=== PATIENT | male | born 1965 | race Caucasian/White ===

== ENCOUNTER 2017-02-06 11:30 | Day surgery (SDC) | payer OTHER ==
[~2017-02-06] VITALS: Ht 177.8 cm; Wt 98.0 kg
[2017-02-06] MEDS ORDERED: ATORVASTATIN (14:16)
[2017-02-06] MEDS ORDERED: OMEPRAZOLE (14:16)
[2017-02-06 14:18] VITALS: Ht 177.8 cm; Wt 98.0 kg
[2017-02-06 14:40] VITALS: BP 128/82; PULSE 66; RESP 18
[2017-02-06] MEDS ORDERED: MIDAZOLAM 1 MG/ML 2 ML INJ ONE ×2 (15:29)
[2017-02-06] MEDS ORDERED: MEPERIDINE 50 MG INJ ONE (15:29)
[2017-02-06] MEDS ORDERED: FENTAnyl 50 MCG/ML VIAL ONE (15:29)
[2017-02-06 15:46] VITALS: BP 121/79; RESP 20
--- NOTE | 2017-02-06 16:20 | GILP ---
DATE OF PROCEDURE: 02/06/2017 INDICATIONS: The patient was referred for colonoscopy because of past history of colon polyps and f amily history of colon CA in second degree relatives apparently. PROCEDURE IN DETAIL: After obtaining informed consent, the patient was sedated with 75 mcg of fenta nyl and 3 mg IV Versed and 25 mg IV Demerol. Rectal exam done. Anal spasm noted. A very tight daniel sphincter. Advanced Olympus video colonoscope very carefully affixed to sigmoid colon with divert iculosis noted. A polyp was found in the descending colon removed by jumbo biopsy forceps and sent to histopathology. Finally, I reached the cecum. Cecum, ascending colon, transverse colon, descend ing colon, otherwise unremarkable except for diverticulosis and 1 polyp removed from the descending colon. Sigmoid colon is narrow and fixed with diverticula, probably diverticular narrowing and no i nflammation noted. Rectum unremarkable. Rectosigmoid and rectum including retroflexion unremarkabl e except for very tight anal sphincter. Postop, patient had no complication. Plan will be to await for biopsy report and follow up as outpa tient. Advised him to continue high fiber diet and more fluids and I will see him in 2 weeks. Repe at colonoscopy probably in 5 years. Dictated By: ANGELA RUVALCABA Conf#: [id number] DID#: [id number] CC: DAYDAY TUTTLE MD;*EndCC*
== END 2017-02-06 16:13 | disposition home or self-care (01) ==
LOC: GIL 11:30
PROVIDERS: ATTEND Internal Medicine
DX: D12.4 Benign neoplasm of descending colon (principal); E78.5 Hyperlipidemia, unspecified; Z83.71 Family history of colonic polyps
CPT/HCPCS: 45380; 88305; J2175; J2250; J3010; Z7610